=== PATIENT | female | born 1940 | race Caucasian/White ===

== ENCOUNTER 2023-10-14 19:02 | Emergency (ER) | payer OTHER ==
[~2023-10-14] VITALS: Ht 152.4 cm; Wt 52.6 kg
[~2023-10-14 19:02] MED LIST: FAMO20 PO; GLIP10TA10 PO; GUAI118L41 PO; HYDR25TA2 PO; LISI-893 PO; METF-445 PO
[2023-10-14] MEDS ORDERED: SODIUM CHLORIDE 0.9% 1,000 ML IV ONE (19:15)
[2023-10-14] MEDS ORDERED: SODIUM CHLORIDE 0.9% 100 ML ONE (19:32)
[2023-10-14] MEDS ORDERED: IOHEXOL 350 MG/ML 100 ML VIAL ONE (19:32)
[2023-10-14 19:50] VITALS: TEMP 97.7
[2023-10-14 20:11] LABS: BASOPHILS % (AUTO) 0.2 % (0.0-2.0); EOSINOPHILS % (AUTO) 0.2 % (1.0-6.0); HEMATOCRIT 29.3 % (36-46); LYMPHOCYTES # (AUTO) 1.9 K/uL (1.0-4.8); LYMPHOCYTES % (AUTO) 7.2 % (22.0-44.0); MEAN CORPUSCULAR HEMOGLOBIN 33.9 pg (26.0-34.0); MEAN CORPUSCULAR VOLUME 100 fL (80-100); MONOCYTES # (AUTO) 1.1 K/uL (0.1-1.0); MONOCYTES % (AUTO) 4.2 % (2.0-9.0); NEUTROPHILS # (AUTO) 22.8 K/uL (1.8-7.7); PLATELET COUNT (AUTO) 473 K/uL (150-450); RED BLOOD CELL COUNT(AUTO) 2.94 MIL/uL (4.00-5.20); WHITE BLOOD COUNT (AUTO) 25.9 K/uL (4.5-11.0)
[2023-10-14 20:20] LABS: NEUTROPHILS % (AUTO) 88.2 % (40.0-70.0)
[2023-10-14 20:23] LABS: ANION GAP 6 mmol/L (8-16); CALCIUM, TOTAL 7.8 mg/dL (8.8-10.5); CARBON DIOXIDE 32 mmol/L (22-29); CHLORIDE 100 mmol/L (98-107); CREATININE 0.75 mg/dL (0.60-1.30); GLOMERULAR FILTR. RATE CALC > 60 mL/min (>60); GLUCOSE,RANDOM 167 mg/dL (70-110); POTASSIUM 3.8 mmol/L (3.5-5.1); SODIUM SERUM 138 mmol/L (136-145); UREA NITROGEN, BLOOD 23 mg/dL (7-18)
[2023-10-14 20:24] LABS: INR 1.2 (0.9-1.1); PROTHROMBIN TIME 12.5 SEC (9.4-11.6)
[2023-10-14 20:28] LABS: CREATINE KINASE, TOTAL ONLY 27 U/L (26-192)
[2023-10-14 20:29] LABS: ALANINE AMINOTRANSFERASE 14 U/L (12-78); ALBUMIN 1.5 g/dL (3.4-5.0); ALKALINE PHOSPHATASE 185 U/L (46-116); ASPARTATE AMINOTRANSFERASE 30 U/L (15-37); TOTAL PROTEIN, SERUM 5.7 g/dL (6.4-8.2)
[2023-10-14 20:31] LABS: LACTIC ACID 1.3 mmol/L (0.4-2.0); TROPONIN I-HIGH SENSITIVITY 6 ng/L (<51)
[2023-10-14 20:40] LABS: B-TYPE NATRIURETIC PEPTIDE 131 pg/mL (0-100)
[2023-10-14] MEDS: CefTRIAXone 1 GM/DEXTROSE 50 ML IV ONE (20:52)
[2023-10-14 20:54] LABS: COVID AG,FIA SOURCE NASAL SWAB
[2023-10-14 21:34] LABS: SARS-COV2 (COVID) ANTIGEN,FIA Negative (Negative)
[2023-10-14 21:35] LABS: INFLUENZA TYPE A NEGATIVE FOR TYPE A (NEGATIVE); INFLUENZA TYPE B NEGATIVE FOR TYPE B (NEGATIVE)
[2023-10-14 21:37] VITALS: BP 133/61; PULSE 75; RESP 17
[2023-10-14 22:38] LABS: APPEARANCE,URINE CLEAR (CLEAR); BILIRUBIN,URINE NEGATIVE (NEGATIVE); COLOR,URINE DARK YELLOW (YELLOW); GLUCOSE, URINE (UA) NEGATIVE (NEGATIVE); KETONES,URINE TRACE mg/dL (NEGATIVE); LEUKOCYTE ESTERASE ,URINE MODERATE (NEGATIVE); NITRATE,URINE NEGATIVE (NEGATIVE); OCCULT BLOOD,URINE NEGATIVE (NEGATIVE); PH,URINE 5.5 (5.0-8.0); PH,URINE DRUG SCREEN 5.5 (5.0-8.0); PROTEIN,URINE TRACE mg/dL (NEGATIVE); SPECIFIC GRAVITIY, URINE 1.032 (1.003-1.030)
[2023-10-14 22:43] LABS: ALCOHOL, URINE DRUG SCREEN NEGATIVE (NEGATIVE); AMPHET/METH SCREEN,URINE NEGATIVE (NEGATIVE); BARBITURATE SCREEN, URINE NEGATIVE (NEGATIVE); BENZODIAZEPINES SCREEN,URINE NEGATIVE (NEGATIVE); CANNABINOID SCREEN,URINE NEGATIVE (NEGATIVE); COCAINE SCREEN,URINE NEGATIVE (NEGATIVE); METHADONE SCREEN, URINE NEGATIVE (NEGATIVE); OPIATE SCREEN,URINE NEGATIVE (NEGATIVE); PHENCYCLIDINE SCREEN,URINE NEGATIVE (NEGATIVE)
[2023-10-14 23:34] LABS: RBC,URINE None Seen /HPF (0-2)
[2023-10-14 23:35] LABS: BACTERIA,URINE Few /HPF (None Seen)
== END 2023-10-14 22:20 | disposition short-term general hospital (02) ==
LOC: EMS 19:03
DX: N39.0 Urinary tract infection, site not specified (principal); I67.1 Cerebral aneurysm, nonruptured; E11.9 Type 2 diabetes mellitus without complications; E78.00 Pure hypercholesterolemia, unspecified; I10 Essential (primary) hypertension; Z20.822 Contact with and (suspected) exposure to COVID-19
CPT/HCPCS: 99285; 70496; 96365; 71045; 87426; 80053; 82550; 83605; 83880; 84484; 85025; 85610; 85730; 87040; 87205; 87804; 86850; 86900; 86901; 36415; 87077; 70498; 82948; 93005; 51701; 80307; 70450; 81001; J0696; Q9967; J7050